=== PATIENT | female | born 1970 | race Caucasian/White ===

== ENCOUNTER 2020-07-01 08:09 | Emergency (ER) | payer OTHER, SELFPAY ==
--- NOTE | 2020-07-01 08:38 | ED.GENADULT ---
HPI - General Adult General Chief complaint: Nausea/Vomiting/Diarrhea Stated complaint: exposure to covid Time Seen by Provider: 07/01/20 08:20 Source: patient and family Mode of arrival: Ambulatory Limitations: no limitations History of Present Illness HPI narrative: 50-year-old female comes to the emergency room with recent COVID exposure. Patient has had some mild headache which he has been taking Tylenol for, nausea and developed a mild cough last night. Exposure includes a friend's of her teenage son who has been in their house. The patient was tested a week ago Saturday or almost 14 days ago and resulted positive last Saturday. In the week interim they spent a large amount of time together in the house, often unmasked. Patient has not had any fevers, no chills. No chest pain or shortness of breath, she has not been vomiting. She denies any medical issues. She has had hysterectomy. Remote tobacco use in college, no illicit. She is accompanied by her significant other who is also here to be evaluated. Review of Systems Review of Systems ROS Unobtainable: All systems reviewed & are unremarkable except as noted in HPI and below Patient History Surgical History (Updated 07/01/20 @ 08:41 by Fallon Mercer DO) H/O: hysterectomy Social History Smoking Status: Former smoker Smoking Status: Former smoker Substance Use Type: does not use Exam Narrative Exam Narrative: GENERAL: Alert and oriented x three, well-nourished, well-appearing female in mild distress HEENT: Head normocephalic, atraumatic, EOMI, pupils reactive, face symmetric, moist mucous membranes NECK: Supple, full range of motion CARDIOVASCULAR: Regular rate and rhythm without murmurs, rubs or gallops. RESPIRATORY: Breath sounds equal bilaterally, no wheezes rales or rhonchi. ABDOMEN: Soft, nontender. Normoactive bowel sounds all 4 quadrants. No guarding or rebound, rigidity, no mass : No CVA tenderness EXTREMITIES: Normal range of motion, no clubbing or edema. Neurovascularly intact NEUROLOGICAL: Cranial nerves II through XII grossly intact. Moving all extremities. Normal gait. SKIN: Warm, dry, no petechiae, no rashes or lesions. Initial Vital Signs Initial Vital Signs: Vital Signs Temperature 97.5 F L 07/01/20 08:46 Pulse Rate 76 07/01/20 08:46 Respiratory Rate 18 07/01/20 08:46 Blood Pressure 136/85 07/01/20 08:46 Pulse Oximetry 98 07/01/20 08:46 Course Orders Ordered: ED Orders 07/01/20 08:25 COVID19 Stat Vital Signs Vital signs: Vital Signs - 8 hr 07/01/20 08:46 Temperature 97.5 F L Pulse Rate 76 Respiratory Rate 18 Blood Pressure 136/85 Pulse Oximetry 98 Medical Decision Making Lab Data Labs: Lab Results 07/01/20 Range/Units 08:25 COVID-19 PCR Negative (Negative) Discharge Plan Departure Patient Disposition: Home Clinical Impression: Cough, Close exposure to 2019-nCoV Instructions: DI for COVID-19 (Suspected or Confirmed ) Activity Restrictions/Additional Instructions: Your test for coronavirus 19 is negative today. With your recent exposure I would continue to self quarantine and if you have worsening symptoms be re-evaluated. *What to do: * per recommendations from the CDC and the [facility] Department of Health * stay home except to get medical care. Restrict activities outside your home, except for getting medical care. Do not go to work, school, or public areas. Avoid using public transportation, ride sharing, or taxis. * separate yourself from other people in your home. * call ahead before visiting your doctor * Wear a face mask * Cover your coughs and sneezes * Clean your hands often * Avoid sharing household items * Clean all high-touch services every day * Monitor your symptoms and seek prompt medical attention if your illness is worsening, particularly with difficulty in breathing. Discussed continuing home isolation * for individuals with symptoms who are confirmed or suspected cases of COVID-19 and are directed to care for themselves at home, discontinue home isolation under the following conditions: 1. At least 72 hours have passed since recovery, defined as resolution of fever without the use of fever reducing medications, and improvement in respiratory symptoms (cough, shortness of breath) AND, 2. At least 7 days have passed since symptoms 1st appeared Individuals with laboratory confirmed COVID-19 who have not had any symptoms may discontinue home isolation when at least 7 days have passed since the date of their 1st COVID-19 diagnostic test and have had no subsequent illness
[2020-07-01 08:46] VITALS: BP 136/85; PULSE 76; RESP 18; TEMP 36.4; O2SAT 98; BMI 30.2
[2020-07-01 09:03] LABS: COVID19 -Nasal RAPID Negative (Negative)
[2020-07-01 09:42] VITALS: BP 127/78; PULSE 70; RESP 16; O2SAT 95
== END 2020-07-01 09:45 | disposition home or self-care (01) ==
PROVIDERS: Emergency Provider Emergency Medicine
DX: Z03.818 Encounter for observation for suspected exposure to other biological agents ruled out (principal); R51.9 Headache, unspecified; R05 Cough; R11.0 Nausea
CPT/HCPCS: 87635; 99281; 99282

== ENCOUNTER 2020-12-21 08:54 | Emergency (ER) | payer OTHER, SELFPAY ==
[2020-12-21] VITALS (7 sets, daily range): BP systolic 102–132; BP diastolic 64–79; PULSE 64–77; RESP 15–19; TEMP 36.6; O2SAT 94–96; BMI 30.7
--- NOTE | 2020-12-21 09:09 | ED.GENADULT ---
HPI - General Adult General Chief complaint: Abdominal Pain Stated complaint: Flu like symptoms Time Seen by Provider: 12/21/20 09:03 Source: patient Mode of arrival: Ambulatory Limitations: no limitations History of Present Illness HPI narrative: This is a 50-year-old female comes emergency department with complaint of flu-like symptoms. Patient describes 5 days of a sensitivity to touch which has been improving. She states her skin just feels overly sensitive. She has had nausea but no vomiting, decreased appetite any time she eats food she has cramping throughout her generalized abdomen. She does not have any localized pain. She has felt bloated. But states her abdomen is not distended. Denies back or flank pain. Patient states she has had normal bowel movements until today when she had watery stools. She denies any melena or bright red blood. Patient denies any dysuria, urgency frequency or hematuria. She has had myalgias. She has had mild headache. She has any neck pain. She has not had any documented fevers greater than 99 F. No chest pain, no shortness of breath, no cold cough or congestion. She does state that she was seen at a walk-in clinic yesterday they noted heart rate was in the 90s. She was referred to the emergency department [place] but she elected not to stay and be evaluated. She also received the Spenser Spenser vaccine 2 weeks prior but did not have any symptoms until 5 days ago. She has a history of frequent PVCs was seen by Cardiology and told she has about 25% of the time. There was discussion about starting medication but she has not at this point. She is not on any regular medications. She has had hysterectomy for fibroids. No allergies to medications. No tobacco, alcohol or illicit. She follows with Debra talley Grey as her PCP> Related Data Previous Rx's Medication Instructions Recorded ondansetron 4 mg PO Q6H PRN #10 tab 12/21/20 Allergies Allergy/AdvReac Type Severity Reaction Status Date / Time No Known Drug Allergies Allergy Verified 12/21/20 09:05 Review of Systems Review of Systems ROS Unobtainable: All systems reviewed & are unremarkable except as noted in HPI and below Patient History Medical History (Updated 12/21/20 @ 11:16 by Fallon Mercer DO) Frequent PVCs Surgical History H/O: hysterectomy Social History Smoking Status: Former smoker Smoking Status: Former smoker tobacco type: cigarettes alcohol intake frequency: holidays/special occasions only Substance Use Type: does not use Exam Narrative Exam Narrative: GENERAL: Alert and oriented x three, well-nourished female in mild distress. HEENT: Head normocephalic, atraumatic, EOMI, no photophobia, pupils reactive, face symmetric, moist mucous membranes NECK: Supple, full range of motion, no meningeal signs. CARDIOVASCULAR: Regular rate and rhythm without murmurs, rubs or gallops. RESPIRATORY: Breath sounds equal bilaterally, no wheezes rales or rhonchi. ABDOMEN: Soft, mild generalized discomfort. Nondistended. Normoactive bowel sounds all 4 quadrants. No guarding or rebound, rigidity, no mass : No CVA tenderness EXTREMITIES: Normal range of motion, no clubbing or edema. Neurovascularly intact NEUROLOGICAL: Cranial nerves II through XII grossly intact. Moving all extremities SKIN: Warm, dry, no petechiae, no rashes or lesions. Initial Vital Signs Initial Vital Signs: Vital Signs Temperature 97.8 F 12/21/20 09:00 Pulse Rate 77 12/21/20 09:00 Respiratory Rate 16 12/21/20 09:00 Blood Pressure 132/79 12/21/20 09:00 Pulse Oximetry 96 12/21/20 09:00 Course Orders Ordered: ED Orders 12/21/20 10:05 COVID19 -Nasal swab/Pre-Proc Stat Discontinued Medications Sodium Chloride (Normal Saline 0.9%) 1,000 mls @ 1,000 mls/hr IV BOLUS ONE Stop: 12/21/20 10:51 Last Infusion: 12/21/20 11:21 Dose: 0 mls/hr Documented by: Admin: 12/21/20 09:59 Dose: 1,000 mls/hr Documented by: VALARIE Ondansetron HCl (Ondansetron 4 Mg/2 Ml Inj) 4 mg IV NOW ONE Stop: 12/21/20 09:53 Last Admin: 12/21/20 09:58 Dose: 4 mg Documented by: VALARIE Vital Signs Vital signs: Vital Signs - 8 hr 12/21/20 11:00 12/21/20 11:30 Pulse Rate 64 64 Respiratory Rate 16 18 Blood Pressure 110/64 109/64 Pulse Oximetry 95 96 Medical Decision Making Lab Data Lab results reviewed: Yes I reviewed the patient's lab results. Result diagrams: 12/21/20 09:19 12/21/20 09:19 Labs: Lab Results 12/21/20 12/21/20 12/21/20 Range/Units 09:19 09:19 09:19 WBC 3.9 L (4.5-11.0) X10^3/uL RBC 4.62 (4.0-5.2) X10^6/uL Hgb 14.2 (12.0-16.0) g/dL Hct 41.8 (36-46) % MCV 90.6 (80-100) fL MCH 30.8 (26-34) PG MCHC 34.0 (30-36) % RDW 12.6 (11.6-14.8) % Plt Count 308 (150-400) X10^3/uL Neut % (Auto) 60.6 (50-75) % Lymph % (Auto) 26.8 (25-40) % Kings % (Auto) 10.5 (3-14) % Eos % (Auto) 1.6 L (2-4) % Baso % (Auto) 0.5 (0-2) % Neut # (Auto) 2400 (4957-9231) /uL Lymph # (Auto) 1100 (1931-3418) /uL Kings # (Auto) 400 (0-900) /uL Eos # (Auto) 100 (0-450) /uL Baso # (Auto) 0 (0-100) /uL PT 12.4 (10.1-12.7) SECONDS INR 1.1 (0.9-1.3) APTT 32 (26.4-36.2) SECONDS Sodium 136 L (137-145) mmol/L Potassium 4.0 (3.4-5.1) mmol/L Chloride 102 (98-107) mmol/L Carbon Dioxide 25 (22-32) mmol/L BUN 10 (7-17) mg/dL Creatinine 0.53 (0.52-1.04) mg/dL Estimated GFR > 60.0 (>60) mL/min BUN/Creatinine Ratio 18.9 (6-22) Glucose 109 H (70-100) mg/dL Calcium 9.7 (8.4-10.2) mg/dL Total Bilirubin 0.3 (0.2-1.3) mg/dL AST 38 H (14-36) IU/L ALT 22 (<35) IU/L Alkaline Phosphatase 79 (38-126) U/L Total Protein 7.7 (6.3-8.2) g/dL Albumin 4.5 (3.5-5.0) g/dL Globulin 3.2 (1.7-4.1) g/dL Albumin/Globulin Ratio 1.4 (1.0-2.8) Lipase 48 (23-300) U/L SARS-CoV-2 (PCR) (Negative) 12/21/20 Range/Units 10:05 WBC (4.5-11.0) X10^3/uL RBC (4.0-5.2) X10^6/uL Hgb (12.0-16.0) g/dL Hct (36-46) % MCV (80-100) fL MCH (26-34) PG MCHC (30-36) % RDW (11.6-14.8) % Plt Count (150-400) X10^3/uL Neut % (Auto) (50-75) % Lymph % (Auto) (25-40) % Kings % (Auto) (3-14) % Eos % (Auto) (2-4) % Baso % (Auto) (0-2) % Neut # (Auto) (8171-6606) /uL Lymph # (Auto) (5900-2345) /uL Kings # (Auto) (0-900) /uL Eos # (Auto) (0-450) /uL Baso # (Auto) (0-100) /uL PT (10.1-12.7) SECONDS INR (0.9-1.3) APTT (26.4-36.2) SECONDS Sodium (137-145) mmol/L Potassium (3.4-5.1) mmol/L Chloride (98-107) mmol/L Carbon Dioxide (22-32) mmol/L BUN (7-17) mg/dL Creatinine (0.52-1.04) mg/dL Estimated GFR (>60) mL/min BUN/Creatinine Ratio (6-22) Glucose (70-100) mg/dL Calcium (8.4-10.2) mg/dL Total Bilirubin (0.2-1.3) mg/dL AST (14-36) IU/L ALT (<35) IU/L Alkaline Phosphatase (38-126) U/L Total Protein (6.3-8.2) g/dL Albumin (3.5-5.0) g/dL Globulin (1.7-4.1) g/dL Albumin/Globulin Ratio (1.0-2.8) Lipase (23-300) U/L SARS-CoV-2 (PCR) Negative (Negative) Urine Dip Bedside Urine Glucose Negative Bedside Urine Bilirubin - Negative Bedside Urine Ketone - Negative Urine Specific [place] 1.015 Bedside Urine Occult Blood - Negative Bedside Urine pH 6 Bedside Urine Protein - Negative Bedside Urine Urobilinogen - Negative Bedside Urine Nitrite - Negative Bedside Urine Leukocytes - Negative Esterase Point of care testing: Urine Dip Bedside Urine Glucose Negative Bedside Urine Bilirubin - Negative Bedside Urine Ketone - Negative Urine Specific [place] 1.015 Bedside Urine Occult Blood - Negative Bedside Urine pH 6 Bedside Urine Protein - Negative Bedside Urine Urobilinogen - Negative Bedside Urine Nitrite - Negative Bedside Urine Leukocytes - Negative Esterase ECG Data Attestation: I personally reviewed and interpreted this ECG as follows: Prior ECG tracings: not available for review Interpretation: Sinus rhythm rate of 73 FL 156 QRS 86 and QTC 447. No acute ST elevation appreciated. Nonspecific change. No prior EKG available. [facility] Narrative Medical decision making narrative: 50-year-old female comes in with what she describes as 5 days flu-like symptoms with nausea but no vomiting, she has had 1 day of watery stools generalized abdominal cramping. Patient states that Advil has been helpful. She been able to drink fluids but states it makes her feel nauseated. She does not have any discrete abdominal pain on exam is only mildly tender generalized. Her labs show a mild leukopenia with no other major abnormalities. Patient was not able to give a stool sample here in the department. After discussion plan for watchful waiting, short course of Zofran and patient was given strict return precautions. Discharge Plan Departure Patient Disposition: Home Clinical Impression: Nausea Diarrhea Qualifiers: Diarrhea type: unspecified type Qualified Code(s): R19.7 - Diarrhea, unspecified Instructions: DI for Nausea -- Adult Activity Restrictions/Additional Instructions: Follow up with your physician in the next 2-3 days if your symptoms have not improved. You may take Zofran 1 tablet every 4 hours as needed for nausea. Prescription to [facility] in [place]. You may continue Advil as needed. Please return for fevers greater 100.4 F, persistent vomiting, worsening abdominal pain, black or bloody stools, lightheadedness or passing out, new chest pain or shortness of breath or other new or worsening symptoms. Prescriptions: New ondansetron 4 mg tablet,disintegrating 4 mg PO Q6H PRN (Reason: nausea and vomiting) Qty: 10 RF: 0
[2020-12-21 09:26] LABS: Add Manual Diff / Slide Review NO; Basophils Absolute Auto 0 /uL (0-100); Basophils Percent Auto 0.5 % (0-2); Eosinophils Absolute Auto 100 /uL (0-450); Eosinophils Percent Auto 1.6 % (2-4); Hematocrit 41.8 % (36-46); Hemoglobin 14.2 g/dL (12.0-16.0); Lymphocytes Absolute Auto 1100 /uL (1100-4500); Lymphocytes Percent Auto 26.8 % (25-40); Mean Corpuscular Hemoglobin 30.8 PG (26-34); Mean Corpuscular Volume 90.6 fL (80-100); Monocytes Absolute Auto 400 /uL (0-900); Monocytes Percent Auto 10.5 % (3-14); Neutrophils Absolute Auto 2400 /uL (1500-7000); Neutrophils Percent Auto 60.6 % (50-75); Platelet Count 308 X10^3/uL (150-400); Red Blood Cell Count 4.62 X10^6/uL (4.0-5.2); Red Cell Distribution Width 12.6 % (11.6-14.8); White Blood Cell Count 3.9 X10^3/uL (4.5-11.0)
[2020-12-21 09:34] LABS: INR 1.1 (0.9-1.3); Prothrombin Time 12.4 SECONDS (10.1-12.7)
[2020-12-21 09:36] LABS: PTT Partial Thromboplastin Tim 32 SECONDS (26.4-36.2)
[2020-12-21 09:38] LABS: Alanine Aminotransferase 22 IU/L (<35); Albumin 4.5 g/dL (3.5-5.0); Albumin Globulin Ratio 1.4 (1.0-2.8); Alkaline Phosphatase 79 U/L (38-126); Aspartate Aminotransferase 38 IU/L (14-36); BUN Creatinine Ratio 18.9 (6-22); Bilirubin Total 0.3 mg/dL (0.2-1.3); Blood Urea Nitrogen 10 mg/dL (7-17); Calcium 9.7 mg/dL (8.4-10.2); Carbon Dioxide 25 mmol/L (22-32); Chloride 102 mmol/L (98-107); Estimated Glomerular Filt Rate > 60.0 mL/min (>60); Globulin 3.2 g/dL (1.7-4.1); Glucose 109 mg/dL (70-100); HEMOLYSIS < 15 (0-50); Lipase 48 U/L (23-300); Sodium 136 mmol/L (137-145); Total Protein 7.7 g/dL (6.3-8.2)
[2020-12-21] MEDS: ONDANSETRON 4 MG/2 ML INJ IV (09:58)
[2020-12-21] MEDS: SODIUM CHLORIDE 0.9% 1,000 ML 1000 ML IV (09:59)
[2020-12-21 11:05] LABS: COVID19 -Nasal RAPID Negative (Negative)
== END 2020-12-21 11:43 | disposition home or self-care (01) ==
PROVIDERS: Emergency Provider Emergency Medicine
DX: R11.0 Nausea (principal); R19.7 Diarrhea, unspecified; R10.84 Generalized abdominal pain; Z20.822 Contact with and (suspected) exposure to COVID-19
CPT/HCPCS: 36415; 80053; 81003; 83690; 85025; 85610; 85730; 87635; 93005; 93010; 96361; 96374; 99284; C9803; J2405

== ENCOUNTER → 2021-08-15 07:02 | Outpatient (CLI) | payer OTHER, SELFPAY ==
[2021-08-15 08:21] LABS: COVID19 -Nasal RAPID POSITIVE (Negative)
== END ==
PROVIDERS: Visit Provider Student in an Organized Health Care Education/Training Program
DX: U07.1 COVID-19 (principal); Z20.822 Contact with and (suspected) exposure to COVID-19; J02.9 Acute pharyngitis, unspecified
CPT/HCPCS: 87070; 87147; 87635

== ENCOUNTER → 2023-10-14 15:30 | Outpatient (CLI) | payer OTHER, SELFPAY ==
--- NOTE | 2023-10-14 15:33 | DI.RAD.S_ITS ---
PROCEDURE: XR ANKLE LT MIN 3V INDICATIONS: STRAIN OF LT ANKLE TECHNIQUE: 3 views of the ankle were acquired. COMPARISON: None. FINDINGS: Bones: No fractures or dislocations. Ankle mortise is normally aligned. Distal tibial bone island. Tiny plantar calcaneal spur. No suspicious bony lesions. Soft tissues: Small tibiotalar joint effusion. Achilles tendon appears normal. IMPRESSION: Small tibiotalar joint effusion may indicate sprain. No acute osseous abnormality. Dictated by: Erica Harris M.D. on 10/14/2023 at 18:34 Approved by: Erica Harris M.D. on 10/14/2023 at 18:34
== END ==
LOC: RAD 15:31
PROVIDERS: Referring Provider Registered Nurse; Visit Provider Registered Nurse
DX: S96.912A Strain of unspecified muscle and tendon at ankle and foot level, left foot, initial encounter (principal); M25.472 Effusion, left ankle; X58.XXXA Exposure to other specified factors, initial encounter
CPT/HCPCS: 73610

== ENCOUNTER → 2024-07-01 11:48 | Outpatient (CLI) | payer OTHER, SELFPAY ==
--- NOTE | 2024-07-01 11:50 | DI.CT.S_ITS ---
PROCEDURE: CT CHEST WO CON INDICATIONS: abnormal findings of lung TECHNIQUE: Noncontrast 5 mm thick sections acquired from the pulmonary apices to the posterior costophrenic angles. 1 mm lung window, 5 mm thick coronal and sagittal and 7 mm axial MIP reformats were then acquired. For radiation dose reduction, the following was used: automated exposure control, adjustment of mA and/or kV according to patient size. COMPARISON: No priors are available FINDINGS: Image quality: Diagnostic Lungs and pleura: There are many small pulmonary nodules. The largest measures up to 8 mm in the right lower lobe (3/140). No dense airspace disease or pleural effusions. Mediastinum, heart, and esophagus: Possible small hiatal hernia. Normal heart size. No pathologic lymph nodes by size criteria. Chest wall and thyroid: Unremarkable Upper abdomen: Hepatic steatosis. No gross abnormality otherwise. Bones: There are degenerative changes. IMPRESSION: Many small pulmonary nodules are present measuring up to 8 mm in the right lower lobe. A 3 to six-month follow-up is recommended. If the patient has a known primary malignancy history, consider PET-CT. No priors are available for review. Dictated by: Trenton Woodward M.D. on 07/03/2024 at 14:28 Approved by: Trenton Woodward M.D. on 07/03/2024 at 14:32
== END ==
PROVIDERS: PCP Registered Nurse; Referring Provider Registered Nurse; Visit Provider Registered Nurse
DX: R91.8 Other nonspecific abnormal finding of lung field (principal)
CPT/HCPCS: 71250

== ENCOUNTER 2024-12-17 20:17 | Emergency (ER) | payer OTHER, SELFPAY ==
[2024-12-17 20:19] VITALS: BP 132/59; PULSE 120; RESP 20; TEMP 37.1; O2SAT 96; BMI 29.0
--- NOTE | 2024-12-17 20:25 | DI.RAD.S_ITS ---
PROCEDURE: XR CHEST 1V INDICATIONS: suspected sepsis TECHNIQUE: One view of the chest was acquired. COMPARISON: None. FINDINGS: Surgical changes and devices: None. Lungs and pleura: Lungs are clear. No pleural effusions or pneumothorax. Mediastinum: Mediastinal contours appear normal. Heart size is normal. Bones and chest wall: No suspicious bony lesions. Overlying soft tissues appear unremarkable. IMPRESSION: No acute cardiopulmonary pathology. Dictated by: Matty Thorne M.D. on 12/17/2024 at 20:50 Approved by: Matty Thorne M.D. on 12/17/2024 at 20:50
--- NOTE | 2024-12-17 20:25 | EKG_ITS ---
[address] [id number] Test Date: 2024-12-17 Pat Name: Jigna Lew Department: Room: Gender: Female [employer] Chamber Technician: DRAGAN MOSCOSO : 1970 Requested By: Order Number: [id number] Reading MD: Elmer Fallon MD Measurements Intervals [place] Rate: 99 P: 50 MN: 146 QRS: 14 QRSD: 84 T: 13 QT: 340 QTc: 436 Interpretive Statements Normal sinus rhythm Cannot rule out Anterior infarct , age undetermined Electronically Signed On 12-18-2024 7:34:00 PDT by Elmer Fallon MD
[2024-12-17] MEDS: SODIUM CHLORIDE 0.9% 1,000 ML 1000 ML IV (20:29)
[2024-12-17 20:37] VITALS: PULSE 96; RESP 22; O2SAT 97
[2024-12-17 20:38] VITALS: BP 118/69; PULSE 91; RESP 22; O2SAT 95
--- NOTE | 2024-12-17 20:39 | PC.NURSE ---
Imaging at bedside
--- NOTE | 2024-12-17 20:39 | ED.ALLEREA ---
HPI - Allergic Reaction General Chief complaint: Allergic Reaction Stated complaint: Fever, Rash Time Seen by Provider: 12/17/24 20:37 Source: patient Mode of arrival: Ambulatory History of Present Illness HPI narrative: 54-year-old female without any significant past medical history presents to the emergency department for multiple complaints, she states that 24 hours ago she started developing diffuse urticarial rash, unsure of any exposures, no known allergies, she states that during that time she also started developing mild chest discomfort she denies any other symptoms at this time, at time of evaluation patient is speaking full sentences protecting airway posterior oropharynx is clear without any signs of obstruction year old male with midline, tolerating secretions, patient meeting anaphylaxis at this time, patient denies any other symptoms at this time. Related Data Previous Rx's Medication Instructions Recorded epinephrine 0.3 mg/0.3 mL 0.3 mg (0.3 mL) IM Q5-15M PRN 12/17/24 injection, auto-injector (EpiPen) anaphylaxis #2 ea famotidine 20 mg tablet (Pepcid) 20 mg PO DAILY 5 days #5 tabs 12/17/24 prednisone 20 mg tablet 20 mg PO BID 5 days #10 tabs 12/17/24 Allergies Allergy/AdvReac Type Severity Reaction Status Date / Time No Known Drug Allergies Allergy Verified 08/15/21 07:08 Review of Systems Review of Systems Narrative: General: Denies fever, chills, weight loss HEENT: Denies headache, eye drainage, eye irritation, head trauma, sore throat, voice change Cardiovascular: Denies any chest pain, palpitations, tachycardia Respiratory: Denies any shortness of breath, cough, wheeze, stridor GI/: Denies any abdominal pain, nausea, vomiting, diarrhea, bright red blood per rectum, melanotic stools, urinary frequency, urinary retention, dysuria, hematuria MSK: Denies any joint pain, muscle pains, swelling Skin: Positive rash Neuro: Denies any headache, lightheadedness, dizziness, fainting, weakness Psych: Denies SI/HI Patient History Medical History (Updated 12/17/24 @ 22:28 by Rich Carrera DO) Frequent PVCs Surgical History H/O: hysterectomy Social History Smoking Status: Never smoker Smoking Status: Never smoker tobacco type: cigarettes alcohol intake frequency: holidays/special occasions only Exam Narrative Exam Narrative: General: Cooperative, well-developed, not in acute distress HEENT: Normocephalic, atraumatic, PERRLA, normal sclera, eyelids normal, patient tolerating secretions no voice changes no stridor no trismus, posterior oropharynx is clear without any signs of obstruction uvula is midline Neck: Active full range of motion, atraumatic Chest: Normal to inspection, negative crepitus, no overlying erythema ecchymosis Respiratory: Normal respiratory effort, not in acute respiratory distress, clear to auscultation bilaterally negative cough, wheeze, tachypnea, rhonchi, rales Cardiology: Regular rate rhythm negative gallop, murmur, rubs GI/: No tenderness to palpation, soft, non rigid, normal to inspection, exam deferred MSK: Full active range of motion in all 4 extremities, atraumatic, no tenderness to palpation of any bony prominences Skin: Diffuse urticarial rash affecting the entire torso upper and lower extremities but spares the palms of the hands soles of the feet, does not affect mucosal membranes Neuro: Alert awake oriented x3, moves all 4 extremities spontaneously, cranial nerves intact, able to answer all questions appropriately follows commands appropriately Psych: Cooperative, negative suicidal or homicidal ideations Initial Vital Signs Initial Vital Signs: Vital Signs Temperature 98.8 F 12/17/24 20:19 Pulse Rate 120 H 12/17/24 20:19 Respiratory Rate 20 12/17/24 20:19 Blood Pressure 132/59 L 12/17/24 20:19 Pulse Oximetry 96 12/17/24 20:19 Oxygen Delivery Method Room Air 12/17/24 20:19 Course Orders Ordered: ED Orders 12/17/24 20:25 XR chest 1V Stat EKG-12 Lead Stat RT Consult Eval and Treat NOW 12/17/24 20:34 Blood Culture Stat Complete Blood Count AUTO DIFF Stat Comprehensive Metabolic Panel Stat Lactate (Lactic Acid) Stat Lipase Stat PTT Partial Thromboplastin Tashi Stat Procalcitonin Stat Prothrombin Time INR Stat Troponin & CK Cardiac Panel Stat Ondansetron HCl (Ondansetron 4 Mg/2 Ml Inj) 4 mg IV NOW PRN PRN Reason: Nausea And Vomiting Ondansetron HCl (Ondansetron 4 Mg Odt) 4 mg PO NOW PRN PRN Reason: Nausea And Vomiting Discontinued Medications Diphenhydramine HCl (Diphenhydramine 50 Mg/Ml Vial) 25 mg IV NOW ONE Stop: 12/17/24 20:39 Last Admin: 12/17/24 20:44 Dose: 25 mg Documented By: KAILA Famotidine (Famotidine 20 Mg/2 Ml Vial) 20 mg IV NOW ONE Stop: 12/17/24 20:39 Last Admin: 12/17/24 20:44 Dose: 20 mg Documented By: KAILA Sodium Chloride (Normal Saline 0.9%) 1,000 mls @ 1,000 mls/hr IV BOLUS ONE Stop: 12/17/24 21:24 Last Infusion: 12/17/24 21:31 Dose: Infused Documented By: Admin: 12/17/24 20:29 Dose: 1,000 mls/hr Documented By: KAILA Sodium Chloride (Normal Saline 0.9%) 1,000 mls @ 1,000 mls/hr IV BOLUS ONE Stop: 12/17/24 21:37 Last Admin: 12/17/24 21:08 Dose: Not Given Documented By: KAILA Methylprednisolone (Methylprednisolone 125 Mg/2 Ml Vial) 125 mg IV NOW ONE Stop: 12/17/24 20:39 Last Admin: 12/17/24 20:44 Dose: 125 mg Documented By: KAILA Vital Signs Vital signs: Vital Signs - 8 hr 12/17/24 20:19 12/17/24 20:37 12/17/24 20:38 Temperature 98.8 F Pulse Rate 120 H 96 H Respiratory Rate 20 22 Blood Pressure 132/59 L 118/69 Pulse Oximetry 96 97 Oxygen Delivery Method Room Air Room Air 12/17/24 20:38 12/17/24 21:00 12/17/24 21:00 Temperature Pulse Rate 91 H 87 Respiratory Rate 22 20 Blood Pressure 129/74 Pulse Oximetry 95 98 Oxygen Delivery Method Room Air Room Air 12/17/24 21:30 12/17/24 21:30 12/17/24 22:00 Temperature Pulse Rate 90 85 Respiratory Rate 16 16 Blood Pressure 125/60 Pulse Oximetry 94 95 Oxygen Delivery Method Room Air Room Air 12/17/24 22:00 Temperature Pulse Rate Respiratory Rate Blood Pressure 119/63 Pulse Oximetry Oxygen Delivery Method MDM - Allergic Reaction Differential Diagnosis Differential diagnosis: Likely anaphylaxis, allergic reaction and urticaria (ACS, pneumonia, electrolyte abnormality) Lab Data 12/17/24 20:34 12/17/24 20:34 Labs: Lab Results 12/17/24 Range/Units 20:34 WBC 8.5 (4.5-11.0) X10^3/uL RBC 4.66 (4.0-5.2) X10^6/uL Hgb 14.6 (12.0-16.0) g/dL Hct 42.2 (36-46) % MCV 90.6 (80-100) fL MCH 31.4 (26-34) PG MCHC 34.6 (30-36) % RDW 13.1 (11.6-14.8) % Plt Count 453 H (150-400) X10^3/uL Neut % (Auto) 82.2 H (50-75) % Lymph % (Auto) 11.6 L (25-40) % Door % (Auto) 5.5 (3-14) % Eos % (Auto) 0.4 L (2-4) % Baso % (Auto) 0.3 (0-2) % Neut # (Auto) 6900 (9581-2313) /uL Lymph # (Auto) 1000 L (9123-7226) /uL Door # (Auto) 500 (0-900) /uL Eos # (Auto) 0 (0-450) /uL Baso # (Auto) 0 (0-100) /uL PT 12.5 (9.4-12.5) SECONDS INR 1.1 (0.9-1.3) APTT 31 (25.1-36.5) SECONDS Sodium 136 L (137-145) mmol/L Potassium 4.1 (3.4-5.1) mmol/L Chloride 102 (98-107) mmol/L Carbon Dioxide 23 (22-32) mmol/L BUN 13 (7-17) mg/dL Creatinine 0.65 (0.52-1.04) mg/dL Estimated GFR > 60 (>60) mL/min BUN/Creatinine Ratio 20.0 (6-22) Glucose 157 H (70-99) mg/dL Lactate 1.8 (0.7-2.1) mmol/L Calcium 9.3 (8.4-10.2) mg/dL Total Bilirubin 0.5 (0.2-1.3) mg/dL AST 87 H (14-36) IU/L ALT 92 H (<35) IU/L Alkaline Phosphatase 97 (38-126) U/L Total Creatine Kinase 53 (30-135) U/L Troponin I < 0.012 (0.01-0.034) ng/mL Total Protein 7.8 (6.3-8.2) g/dL Albumin 4.4 (3.5-5.0) g/dL Globulin 3.4 (1.7-4.1) g/dL Albumin/Globulin Ratio 1.3 (1.0-2.8) Lipase 37 (23-300) U/L Procalcitonin 0.211 (<0.5) ng/mL Imaging Data Chest x-ray: Radiologist's Impression: [address] [address] XRay Report Signed Patient: Jigna Lew MR#: [id number] : 1970 Acct:[id number] Age/Sex: 54 / F Date of Service: 12/17/24 Loc: ED Accession Number: [id number] Procedure: XR chest 1V Ordering Provider: Rich Carrera D.O. PROCEDURE: XR CHEST 1V INDICATIONS: suspected sepsis TECHNIQUE: One view of the chest was acquired. COMPARISON: None. FINDINGS: Surgical changes and devices: None. Lungs and pleura: Lungs are clear. No pleural effusions or pneumothorax. Mediastinum: Mediastinal contours appear normal. Heart size is normal. Bones and chest wall: No suspicious bony lesions. Overlying soft tissues appear unremarkable. IMPRESSION: No acute cardiopulmonary pathology. ECG Data Interpretation: EKG interpreted by ED physician sinus 99 beats per minute, QTC [address] changes no STEMI MDM Narrative Medical decision making narrative: 54-year-old female without any significant past medical history comes into the ED for allergic reaction, she states that yesterday she started developing diffuse urticarial rashes, she states that at that time she also developed some chest pain, on initial evaluation patient speaking full sentences protecting airway, posterior oropharynx is clear without any signs of obstruction no indication for epinephrine, patient did receive Solu-Medrol, Benadryl, Pepcid, with resolution of symptoms here, patient with negative workup, chest x-ray without any acute cardiopulmonary abnormality, EKG nonischemic in nature, troponin negative, patient without any leukocytosis Chem panel unremarkable, patient will be sent home with symptomatic relief and instructed to follow up with the primary care and assistant community director in outpatient setting, patient heart score 0, patient was given strict return precautions she verbalized understanding of this and agrees to being discharged home with outpatient follow up Discharge Plan Departure Patient Disposition: Home Clinical Impression: Allergic reaction Instructions: DI for General Allergic Reactions, How to use an Epinephrine Auto-Injector -- Adult Activity Restrictions/Additional Instructions: Please follow up with primary care and an assistant community director in outpatient setting Please read the discharge instructions sheet carefully and bring all papers to all doctor follow-up visits, as it may contain information that your doctor may want to see. Disease processes change and evolve, if your symptoms worsen or if you develop any new symptoms that are concerning to you please return for evaluation. Your evaluation today does not show any evidence of any life-threatening/serious illnesses requiring admission to the hospital or surgery. Please follow-up with your doctor for re-evaluation in approximately 1 day. Seek immediate medical attention for any worrisome symptoms. *If you do not have a primary care provider please contact the [facility] Resource line at [phone]. They will ask some questions about your medical history and help get you set up with a doctor in the community. Prescriptions: New epinephrine [EpiPen] 0.3 mg/0.3 mL auto-injector 0.3 mg IM Q5-15M PRN (Reason: anaphylaxis) Qty: 2 2RF Rx Instructions: do not exceed 3 doses per episode prednisone 20 mg tablet 20 mg PO BID 5 Days Qty: 10 0RF famotidine [Pepcid] 20 mg tablet 20 mg PO DAILY 5 Days Qty: 5 0RF Referrals: Estella Almonte ARNP [Primary Care Provider] - Stand Alone Forms: Patient Portal/API/Survey
[2024-12-17] MEDS: methylPREDNISolone 125 MG/2 ML VIAL IV (20:44)
[2024-12-17] MEDS: FAMOTIDINE 20 MG/2 ML VIAL IV (20:44)
[2024-12-17] MEDS: diphenhydrAMINE 50 MG/ML VIAL 25 MG IV (20:44)
[2024-12-17 20:46] LABS: Add Manual Diff / Slide Review NO; Basophils Absolute Auto 0 /uL (0-100); Basophils Percent Auto 0.3 % (0-2); Eosinophils Absolute Auto 0 /uL (0-450); Eosinophils Percent Auto 0.4 % (2-4); Hematocrit 42.2 % (36-46); Hemoglobin 14.6 g/dL (12.0-16.0); Lymphocytes Absolute Auto 1000 /uL (1100-4500); Lymphocytes Percent Auto 11.6 % (25-40); Mean Corpuscular HGB Conc 34.6 % (30-36); Mean Corpuscular Hemoglobin 31.4 PG (26-34); Mean Corpuscular Volume 90.6 fL (80-100); Monocytes Absolute Auto 500 /uL (0-900); Monocytes Percent Auto 5.5 % (3-14); Neutrophils Absolute Auto 6900 /uL (1500-7000); Neutrophils Percent Auto 82.2 % (50-75); Platelet Count 453 X10^3/uL (150-400); Red Blood Cell Count 4.66 X10^6/uL (4.0-5.2); Red Cell Distribution Width 13.1 % (11.6-14.8); White Blood Cell Count 8.5 X10^3/uL (4.5-11.0)
[2024-12-17 20:53] LABS: INR 1.1 (0.9-1.3); Prothrombin Time 12.5 SECONDS (9.4-12.5)
[2024-12-17 20:56] LABS: PTT Partial Thromboplastin Tim 31 SECONDS (25.1-36.5)
[2024-12-17 21:00] VITALS: BP 129/74; PULSE 87; RESP 20; O2SAT 98
[2024-12-17 21:04] LABS: Lactate (Lactic Acid) 1.8 mmol/L (0.7-2.1)
[2024-12-17 21:05] LABS: Creatine Kinase 53 U/L (30-135)
[2024-12-17 21:17] LABS: Troponin I < 0.012 ng/mL (0.01-0.034)
[2024-12-17 21:18] LABS: Alanine Aminotransferase 92 IU/L (<35); Albumin 4.4 g/dL (3.5-5.0); Albumin Globulin Ratio 1.3 (1.0-2.8); Alkaline Phosphatase 97 U/L (38-126); Aspartate Aminotransferase 87 IU/L (14-36); Bilirubin Total 0.5 mg/dL (0.2-1.3); Blood Urea Nitrogen 13 mg/dL (7-17); Calcium 9.3 mg/dL (8.4-10.2); Carbon Dioxide 23 mmol/L (22-32); Chloride 102 mmol/L (98-107); Estimated Glomerular Filt Rate > 60 mL/min (>60); Globulin 3.4 g/dL (1.7-4.1); Glucose 157 mg/dL (70-99); HEMOLYSIS < 15 (0-50); Lipase 37 U/L (23-300); Potassium 4.1 mmol/L (3.4-5.1); Sodium 136 mmol/L (137-145); Total Protein 7.8 g/dL (6.3-8.2)
[2024-12-17 21:30] VITALS: BP 125/60; PULSE 90; RESP 16; O2SAT 94
[2024-12-17 21:34] LABS: Procalcitonin 0.211 ng/mL (<0.5)
[2024-12-17 22:00] VITALS: BP 119/63; PULSE 85; RESP 16; O2SAT 95
--- NOTE | 2024-12-17 22:17 | PC.NURSE ---
Pt ambulatory to restroom without difficulty or assistance
--- NOTE | 2024-12-17 22:35 | PC.NURSE ---
Pt taking po fluids without difficulty
== END 2024-12-17 22:43 | disposition home or self-care (01) ==
PROVIDERS: Emergency Provider Student in an Organized Health Care Education/Training Program; PCP Registered Nurse
DX: T78.40XA Allergy, unspecified, initial encounter (principal); R07.9 Chest pain, unspecified; R50.9 Fever, unspecified
CPT/HCPCS: 36415; 71045; 80053; 82550; 83605; 83690; 84145; 84484; 85025; 85610; 85730; 87040; 93005; 96361; 96374; 96375; 99284; J1200; J2919

== ENCOUNTER → 2024-12-29 07:29 | Outpatient (CLI) | payer OTHER, SELFPAY ==
--- NOTE | 2024-12-29 07:30 | DI.US.S_ITS ---
PROCEDURE: US ABDOMEN LIMITED INDICATIONS: RUQ PAIN TECHNIQUE: Real-time scanning was performed of the abdominal and retroperitoneal organs, with image documentation. COMPARISON: [facility], CT, CT CHEST WO CON, 07/01/2024, 12:10. FINDINGS: Liver: Liver is normal in size . There is increased echogenicity. The left lobe of the liver demonstrates a small simple cyst measuring 11 x 8 x 8 mm. Liver measures 14.1 cm. Gallbladder: No gallstones are identified. No evidence of acute cholecystitis. Biliary ducts: Intrahepatic bile ducts are non-dilated. Extrahepatic bile duct caliber measures 6.3 mm. Normal is 6-7 mm or less in diameter, or 10 mm or less post-cholecystectomy. Pancreas: Visualized portions of the pancreas are sonographically normal. Miscellaneous: No free abdominal fluid. IMPRESSION: 1. No evidence of acute cholecystitis or cholelithiasis. 2. Hepatic steatosis versus hepatocellular disease. Dictated by: Karyn Ponce M.D. on 12/29/2024 at 10:02 Approved by: Karyn Ponce M.D. on 12/29/2024 at 10:09
== END ==
PROVIDERS: PCP Registered Nurse; Referring Provider Registered Nurse; Visit Provider Registered Nurse
DX: K76.0 Fatty (change of) liver, not elsewhere classified (principal); R10.11 Right upper quadrant pain
CPT/HCPCS: 76705

== ENCOUNTER → 2025-07-18 09:31 | Outpatient (CLI) | payer OTHER, SELFPAY ==
--- NOTE | 2025-07-18 09:34 | DI.CT.S_ITS ---
PROCEDURE: CT CHEST WO CON INDICATIONS: Lung nodule f/u TECHNIQUE: Noncontrast 5 mm thick sections acquired from the pulmonary apices to the posterior costophrenic angles. 1 mm lung window, 5 mm thick coronal and sagittal and 7 mm axial MIP reformats were then acquired. For radiation dose reduction, the following was used: automated exposure control, adjustment of mA and/or kV according to patient size. COMPARISON: Outside Facility, RG, CT CALCIUM SCORING, 06/08/2023, 15:21. Stable. [facility], CT, CT CHEST WO CON, 07/01/2024, 12:10. FINDINGS: Image quality: Diagnostic. Lower Neck: No enlarged lymph nodes. Thyroid: No thyroid nodules which require sonographic follow up, per consensus guidelines. Axillae: No enlarged lymph nodes. Chest Wall: Unremarkable. Bones: Unremarkable. Lungs and Pleura: No pneumothorax or pleural effusions. Stable 8 mm pulmonary nodule, right lower lobe, image 163 of series 3 of the current study. This is unchanged compared to a CT calcium scoring study from 06/08/2023. Stable 6 mm fissural nodule, left major fissure, current image 163 of series 3 and previous image 157 of series 3. Stable 4 mm pulmonary nodule, right lower lobe, current image 193 of series 3 and previous image 191 of series 3. Other 3 mm or less pulmonary nodules are Heart: Heart size is normal. No pericardial effusion. Thoracic Vessels: The aorta and pulmonary arteries demonstrate normal size. Mediastinum and Mariel: No enlarged lymph nodes. Esophagus: No wall thickening. No hiatal hernia. Upper Abdomen: Visualized upper abdomen solid organs and bowel loops appear normal. IMPRESSION: Numerous pulmonary nodules have been stable compared to the study dated 07/01/24. The 8 mm nodule was seen on the CT calcium scoring study from 2022, and has been stable, and is a benign pulmonary nodule. Comment: Recommend 1 more follow-up study in 12 months to document 2 year stability of the other pulmonary nodules. Dictated by: Hugh Perez M.D. on 07/18/2025 at 10:19 Approved by: Hugh ePrez M.D. on 07/18/2025 at 10:28
== END ==
LOC: CT 09:32
PROVIDERS: PCP Registered Nurse; Referring Provider Registered Nurse; Visit Provider Registered Nurse
DX: R91.8 Other nonspecific abnormal finding of lung field (principal)
CPT/HCPCS: 71250